=== PATIENT | female | born 1965 | race Caucasian/White ===

== ENCOUNTER 2016-07-24 18:13 | Emergency (ER) | payer SELFPAY ==
[~2016-07-24] VITALS: Wt 70.0 kg
[~2016-07-24 18:13] MED LIST: MECL12.5 PO; SERT25TA83 PO; ZOC10 PO
[2016-07-24] MEDS ORDERED: IBUP-1542 PO (18:41)
--- NOTE | 2016-07-24 18:51 | ERD ---
ER Documentation Chief Complaint Date/Time DATE: 07/24/16 TIME: 18:44 Chief Complaint SORE THROAT RIGHT SIDE EAR PAIN AND HEADACHE FOR 3 DAYS. HPI Patient is a 50-year-old female who presents to the emergency department with sore throat, right ear pain and headache 3 days. Patient states that her throat pain is worse when swallowing. Patient denies any drooling or trismus. Patient denies any fever, chills, nausea, vomiting, cough. Patient reports occasional clear rhinorrhea. Patient reports a normal appetite. Patient states that her right ear pain has been for the last 2 days. Patient denies any discharge or bleeding. Patient denies any hearing loss. Patient states that she has a headache for 2 days. Pain is primarily in the occipital region. Patient states that the pain has been gradual in onset. She denies sudden onset. She states her current pain level is 3 out of 10. Patient describes the pain to be throbbing. She denies any difficulty moving her neck. Patient has not taken any pain medication. Patient denies receiving her flu vaccine this year. Patient denies recent travel. Patient denies sick contacts. ROS All systems reviewed and are negative except as per history of present illness. Medications Home Meds Active Scripts Ibuprofen* (Motrin*) 600 Mg Tab, 600 MG PO Q6, #30 TAB Prov:ASAEL SCOTT PA-C 07/24/16 Reported Medications Simvastatin (Simvastatin) 10 Mg Tablet, 10 MG PO HS, TAB 03/29/14 Meclizine Hcl* (Meclizine Hcl*) 12.5 Mg Tablet, 12.5 MG PO DAILY, TAB 03/29/14 Sertraline Hcl* (Sertraline Hcl*) 25 Mg Tablet, 25 MG PO QAM, TAB 03/29/14 Allergies Allergies: Coded Allergies: No Known Allergy (Unverified , 03/29/14) PMhx/Soc History of Surgery: No Anesthesia Reaction: No Hx Neurological Disorder: No Hx Respiratory Disorders: No Hx Cardiac Disorders: No Hx Psychiatric Problems: No Hx Miscellaneous Medical Probl: No Hx Alcohol Use: No Hx Substance Use: No Hx Tobacco Use: No FmHx Family History: No diabetes Physical Exam Vitals Vital Signs Date Time Temp Pulse Resp B/P Pulse Ox O2 Delivery O2 Flow Rate FiO2 07/24/16 18:28 98.8 61 20 119/60 99 Physical Exam GENERAL: Well-developed, well-nourished female. Appears in no acute distress. Speaking in full sentences. HEAD: Normocephalic, atraumatic. No deformities or ecchymosis. EYE: Pupils equal, round, and reactive to light. EOMs intact. No conjunctival erythema. No scleral icterus. No eye discharge. ENT: External ear without any masses or tenderness. Auditory canals clear bilaterally. TM visualized bilaterally, non-erythematous, non-bulging. Nasal mucosa pink with no discharge. Oropharynx is pink without any tonsillar erythema or exudates. No uvula deviation. No kissing tonsils. Bilateral mastoid processes nontender to palpation. No drooling. No trismus. NECK: Supple. No lymphadenopathy or thyromegaly. No meningismus. Normal range of motion of the neck. LUNG: Clear to auscultation bilaterally. No rhonchi, wheezing, rales or coarse breath sounds. HEART: Regular rate and rhythm. No murmurs, rubs or gallops. BACK: No midline tenderness. Tender to palpation of right sided trapezius muscles EXTREMITES: Equal pulses bilaterally. No peripheral clubbing, cyanosis or edema. No unilateral leg swelling. NEUROLOGIC: Alert and oriented x3, cooperative. Mood and affect appropriate to situation. Cranial nerves II through XII are grossly intact. Normal speech. Motor exam: 5/5 strength in upper and lower extremities. Sensory exam: Sensation intact to light touch on all four extremities. Cerebellar function exam: Rapid alternating movements intact. No dysmetria on [id number] test. Steady gait. Negative Brudzinski sign. Negative Kernig sign. SKIN: Normal color. Warm and dry. No rashes or lesions. Procedures/MDM MEDICAL DECISION MAKING: This is a 50-year-old female who presents with throat pain, right-sided ear pain , and headache 3 days. Vital signs were reviewed. Patient was afebrile. Patient was not hypoxic. The patient does not have trismus, muffled voice, uvula deviation, unilateral tonsillar swelling, or drooling. No signs of neck swelling or hyperextension of the neck noted. ENT exam was normal. Lung exam was normal. Full neurological exam was negative. Given these findings, the patients presentation is most consistent with viral pharyngitis versus viral URI. I have a much lower clinical suspicion for epiglottitis, peritonsillar abscess, retropharyngeal abscess, Ludwigs angina, strep pharyngitis, dental abscess, otitis externa, acute otitis media, meningitis, subarachnoid hemorrhage , CVA, migraine headache. PRESCRIPTIONS: Ibuprofen DISCHARGE: At this time, patient is stable for discharge and outpatient management. Supportive therapies such as OTC throat lozenges and warm salt water gurgles were discussed. I have instructed the patient to follow-up with his/her primary care physician in 1-2 days. I have discussed with the patient the possibility of needing to see a specialist for further workup and imaging studies if symptoms persist. I have instructed the patient to promptly return to the ER for any new or worsening symptoms including increased pain, fever, nausea, vomiting, weakness or LOC. The patient and/or family expressed understanding of and agreement with this plan. All questions were answered. Home care instructions were provided. Departure Diagnosis: Primary Impression: Viral pharyngitis Condition: Stable Patient Instructions: Pharyngitis, Viral Additional Instructions: Llame al doctor KRYSTLE y ruel key MADHAVI PARA DENTRO DE 1-2 OZUNA.Dgale a la secretaria que nosotros le instruimos hacer esta madhavi.Avise o llame si steele condicin se empeora antes de la madhavi. Regresa aqui si peor o no mejor. ASAEL SCOTT PA-C Jul 24, 2016 18:51
== END 2016-07-24 18:51 | disposition home or self-care (01) ==
LOC: E/R 18:13
DX: J02.8 Acute pharyngitis due to other specified organisms (principal); B97.89 Other viral agents as the cause of diseases classified elsewhere
CPT/HCPCS: 99283

== ENCOUNTER 2018-08-22 06:56 | Emergency (ER) | payer OTHER ==
[~2018-08-22] VITALS: Ht 157.5 cm; Wt 63.7 kg
[~2018-08-22 06:56] MED LIST changes: +IBUP-1542 PO
[2018-08-22 07:00] VITALS: BP 130/64; PULSE 89; RESP 18; Ht 157.5 cm; Wt 63.7 kg
[2018-08-22] MEDS ORDERED: IPRATROPIUM (NEB) 0.5 MG/2.5 ML AMP NEB STA (07:12)
[2018-08-22] MEDS ORDERED: ACETAMINOPHEN 500 MG TAB PO STA (07:12)
[2018-08-22] MEDS ORDERED: ALBUTEROL 0.083% (NEB) 2.5 MG/3 ML AMP NEB STA (07:12)
[2018-08-22] MEDS ORDERED: DEXAMETHASONE 10 MG/ML 1 ML INJ IM STA (07:12)
--- NOTE | 2018-08-22 07:28 | ERD ---
ER Documentation Chief Complaint Chief Complaint cough, congestion & fever x3 days HPI 53-year-old female with a history of asthma presents complaining of waking up with shortness of breath and wheezing. She does not have an inhaler at home. Also states she has had a fever. Symptoms have been going on for about 3 days. No chest pain palpitations or diaphoresis. Did not take any antipyretics. Mild dry cough. ROS All systems reviewed and are negative except as per history of present illness. Medications Home Meds Active Scripts Albuterol Sulfate* (Proair HFA*) 8.5 Gm Hfa.aer.ad, 2 PUFF INH Q4, #1 INHALER Prov:MANOJ MARCOS PA-C 08/22/18 Azithromycin* (Zithromax*) 250 Mg Tablet, 250 MG PO .ZPACK DIRECTED, #6 TAB TAKE 500 MG (2 TABS) THE FIRST DAY THEN 250 MG (1 TAB) DAYS 2-5 Prov:MANOJ MARCOS PA-C 08/22/18 Ibuprofen* (Motrin*) 600 Mg Tab, 600 MG PO Q6, #30 TAB Prov:ASAEL SCOTT PA-C 07/24/16 Reported Medications Simvastatin (Simvastatin) 10 Mg Tablet, 10 MG PO HS, TAB 03/29/14 Meclizine Hcl* (Meclizine Hcl*) 12.5 Mg Tablet, 12.5 MG PO DAILY, TAB 03/29/14 Sertraline Hcl* (Sertraline Hcl*) 25 Mg Tablet, 25 MG PO QAM, TAB 03/29/14 Allergies Allergies: Coded Allergies: No Known Allergy (Unverified , 08/22/18) PMhx/Soc Medical and Surgical Hx: pt denies Medical Hx, pt denies Surgical Hx History of Surgery: No Anesthesia Reaction: No Hx Neurological Disorder: No Hx Respiratory Disorders: No Hx Cardiac Disorders: No Hx Psychiatric Problems: No Hx Miscellaneous Medical Probl: No Hx Alcohol Use: No Hx Substance Use: No Hx Tobacco Use: No Smoking Status: Never smoker FmHx Family History: No diabetes Physical Exam Vitals Vital Signs Date Temp Pulse Resp B/P (MAP) Pulse Ox O2 O2 Flow FiO2 Time Delivery Rate 08/22/18 77 19 96 21 07:35 08/22/18 101.4 89 18 130/64 96 07:00 (86) Physical Exam INITIAL VITAL SIGNS: Reviewed by me GENERAL: Awake, alert and oriented x 4, well appearing, nontoxic, speaking in full sentences. No acute distress HEAD: Atraumatic NECK: Supple. No masses. Full range of motion. No meningismus. No midline tenderness. EYES: EOMI. PERRL. RESPIRATORY: Clear to auscultation bilaterally. Symmetric chest wall rise. No wheezing or rales. No accessory muscle use. CV: Regular rate and rhythm. No murmurs, rubs, or gallops. ABDOMEN: Soft, non-distended. Nontender. Negative [place]. Negative McBurneys point tenderness. No CVA tenderness bilaterally. No guarding. No rebound. Results 24 hrs Current Medications Medications Dose Sig/Ana Start Time Status Last (Trade) Ordered Route PRN Stop Time Admin Dose Reason Admin 1,000 mg ONCE STAT 08/22/18 DC 08/22/18 Acetaminophen PO 07:12 08/22/18 07:18 (Tylenol 07:13 Tab) Albuterol 5 mg ONCE STAT 08/22/18 DC 08/22/18 (Proventil NEB 07:12 08/22/18 07:35 0.083% (Neb)) 07:13 Ipratropium 0.5 mg ONCE STAT 08/22/18 DC 08/22/18 [place]ington NEB 07:12 08/22/18 07:35 (Atrovent 07:13 0.02% (Neb)) 10 mg ONCE STAT 08/22/18 DC 08/22/18 Dexamethasone IM 07:12 08/22/18 07:18 (Decadron) 07:13 Procedures/MDM This is a 53-year-old female who is here with asthma exacerbation and fever. She is well-appearing and her lungs only show mild wheezing. I doubt she has pneumonia, sepsis or any other bacterial etiology for her symptoms. She was given Decadron and a breathing treatment with improvement as well as Tylenol for her fever. Chest x-ray shows possible pneumonia so she will be treated with azithromycin and also given albuterol inhaler. Patient counseled regarding my diagnostic impression and care plan. Prior to discharge all questions answered. Pt agrees with treatment plan and understands strict return precautions. Pt is instructed to follow up with primary care provider within 24-48 hours. Precautionary instructions provided including instructions to return to the ER if not improving or for any worsening or changing symptoms or concerns. Departure Diagnosis: Primary Impression: Pneumonia Condition: Stable MANOJ MARCOS PA-C Aug 22, 2018 07:28
[2018-08-22] MEDS ORDERED: AZIT250T PO (08:27)
[2018-08-22] MEDS ORDERED: ALBU8.5H8 INH (08:27)
== END 2018-08-22 08:53 | disposition home or self-care (01) ==
LOC: FTE 06:56
DX: J18.9 Pneumonia, unspecified organism (principal); J45.909 Unspecified asthma, uncomplicated
CPT/HCPCS: 71045; 94664; 96372; 99284; J1100

== ENCOUNTER 2018-08-27 10:08 | Emergency (ER) | payer OTHER ==
[~2018-08-27] VITALS: Wt 63.2 kg
[~2018-08-27 10:08] MED LIST changes: +ALBU8.5H8 INH; +AZIT250T PO
--- NOTE | 2018-08-27 11:35 | ERD ---
ER Documentation Chief Complaint Chief Complaint ANXIETY AND COUGH X 1 WEEK HPI 53-year-old female, presents to the emergency department, requesting chest x- rays, the patient states that she was seen here 3 days ago and started on antibiotics and albuterol inhaled without improvement of the symptoms, her son was hospitalized with diagnosis of pneumonia and she was told to have x-rays done. She denies fevers, no chills, no shortness of breath. ROS All systems reviewed and are negative except as per history of present illness. Medications Home Meds Active Scripts Albuterol Sulfate* (Proair HFA*) 8.5 Gm Hfa.aer.ad, 2 PUFF INH Q4, #1 INHALER Prov:MANOJ MARCOS PA-C 08/22/18 Azithromycin* (Zithromax*) 250 Mg Tablet, 250 MG PO .ZPACK DIRECTED, #6 TAB TAKE 500 MG (2 TABS) THE FIRST DAY THEN 250 MG (1 TAB) DAYS 2-5 Prov:MANOJ MARCOS PA-C 08/22/18 Ibuprofen* (Motrin*) 600 Mg Tab, 600 MG PO Q6, #30 TAB Prov:ASAEL SCOTT PA-C 07/24/16 Reported Medications Simvastatin (Simvastatin) 10 Mg Tablet, 10 MG PO HS, TAB 03/29/14 Meclizine Hcl* (Meclizine Hcl*) 12.5 Mg Tablet, 12.5 MG PO DAILY, TAB 03/29/14 Sertraline Hcl* (Sertraline Hcl*) 25 Mg Tablet, 25 MG PO QAM, TAB 03/29/14 Allergies Allergies: Coded Allergies: No Known Allergy (Unverified , 08/22/18) PMhx/Soc Medical and Surgical Hx: pt denies Surgical Hx History of Surgery: No Anesthesia Reaction: No Hx Neurological Disorder: No Hx Respiratory Disorders: No Hx Cardiac Disorders: No Hx Psychiatric Problems: No Hx Miscellaneous Medical Probl: Yes (high cholesterol) Hx Alcohol Use: Yes (social) Hx Substance Use: No Hx Tobacco Use: No Smoking Status: Never smoker FmHx Family History: No diabetes, No coronary disease Physical Exam Vitals Vital Signs Date Temp Pulse Resp B/P (MAP) Pulse Ox O2 O2 Flow FiO2 Time Delivery Rate 08/27/18 98.1 79 18 145/65 99 10:12 (91) Physical Exam Const: No acute distress Head: Atraumatic Eyes: Normal Conjunctiva ENT: Normal External Ears, Nose and Mouth. Neck: Full range of motion. No meningismus. Resp: Clear to auscultation bilaterally Cardio: Regular rate and rhythm, no murmurs Abd: Soft, non tender, non distended. Normal bowel sounds Skin: No petechiae or rashes Back: No midline or flank tenderness Ext: No cyanosis, or edema Neur: Awake and alert Psych: Normal Mood and Affect Procedures/MDM At the time of discharge, patient with nontoxic appearance, vital signs stable, no respiratory distress. Differential diagnosis include but not limited to: Respiratory infection bacterial/viral/fungal. Influenza, croup, bronchiolitis, pneumonitis, allergies, GERD. Less likely foreign body aspiration, cardiac related. Physical examination and clinical presentation consistent most likely with viral infection with early superimposed bacterial infection. During the ED course the patient remained stable, no new complaints. Treatment options and clinical impression discussed with patient who agrees with management. The patient is stable to be treated outpatient and will be discharged home. Some side effects of prescribed medications (headache, rash, nausea, vomiting, diarrhea, interactions with other medications) were reviewed. The patient needs to follow up with the primary care provider in the next 48h. If symptoms persist, worsen or new symptoms develop, then patient should return to the ED immediately. Disclaimer: Inadvertent spelling and grammatical errors are likely due to EHR/di ctation software use and do not reflect on the overall quality of patient care. Also, please note that the electronic time recorded on this note does not necessarily reflect the actual time of the patient encounter. Departure Diagnosis: Primary Impression: Cough Condition: Stable Additional Instructions: Muchas mercy por [facility] para steele servicio. Esperamos que en steele visita a la joe de emergencia steele problema medico haya sido solucionado y que se sienta mucho mejor. Para estar seguros que steele mejoria sigue en proceso, le pedimos el favor de hacer key nga de seguimiento medico con steele doctor primario en los proximos 2-4 luque. Lleve con usted estos documentos y las medicinas recetadas. Si mercedes sintomas empeoran, NO SE ESPERE, por favor regrese a joe de emergencia INMEDIATAMENTE. En magdalena que usted no tenga un mdico de atencin primaria: Llame al mdico o clnica comunitaria de referencia que aparece abajo des las horas de consultorio para hacer key nga para que le vean. CLINICAS: [facility] [phone] [facility] [phone] [address] [facility] [phone] [facility] [phone] [facility] [phone] [address] [facility]. [phone] WALT WELLS MD Aug 27, 2018 11:35
[2018-08-27] MEDS ORDERED: AMOX500C2 PO (12:16)
[2018-08-27] MEDS ORDERED: BENZ-6 PO (12:16)
[2018-08-27 12:31] VITALS: BP 142/62; PULSE 77; RESP 18
== END 2018-08-27 12:32 | disposition home or self-care (01) ==
LOC: FTE 10:08
DX: R05 Cough (principal)
CPT/HCPCS: 71046

== ENCOUNTER 2018-11-18 18:25 | Emergency (ER) | payer OTHER ==
[~2018-11-18] VITALS: Ht 157.5 cm; Wt 65.0 kg
[~2018-11-18 18:25] MED LIST changes: +AMOX500C2 PO; +BENZ-6 PO
[2018-11-18 18:48] VITALS: Ht 157.5 cm; Wt 65.0 kg
[2018-11-18] MEDS ORDERED: METHYLPREDNISOLONE 125 MG INJ IM STA (19:49)
--- NOTE | 2018-11-18 19:55 | ERD ---
ER Documentation Chief Complaint Chief Complaint DIZZINESS X4DAYS, INSOMNIA X4DAYS FEELS GAIT IS UNSTEADY NO NEURODEFICITS HPI Patient is a 53 years old post-menopausal female with past medical history of hyperlipidemia presenting to the clinic for dizziness and headache X 4 days. She reports the headache and dizziness was constant and has tried [id number]-[id number] medication without resolution. She reports having history of dizziness in the past that was treated with medication from PCP (patient cannot recall name). Patient denies urinary symptoms, shortness of breath, difficulty breathing, cough, runny nose, sinus pressure, ear pain. Patient admits to eating at regular intervals. ROS All systems reviewed and are negative except as per history of present illness. Medications Home Meds Active Scripts Sulfamethoxazole/Trimethoprim* (Bactrim Ds* Tablet) 1 Each Tablet, 1 TAB PO BID for 7 Days, #14 TAB Prov:CLAUDINE MORAN PA-C 11/18/18 Methylprednisolone* (Medrol* DOSE PACK) 4 Mg/Dose-Pack Tab.ds.pk, 4 MG PO . DIRECTED for 5 Days, PACKET Prov:CLAUDINE MORAN PA-C 11/18/18 Benzonatate* (Tessalon Perle*) 100 Mg Capsule, 100 MG PO Q8H PRN for COUGH, #20 CAP Prov:WALT MIMS MD 08/27/18 Amoxicillin* (Amoxicillin*) 500 Mg Cap, 500 MG PO TID for 7 Days, CAP Prov:WALT MIMS MD 08/27/18 Albuterol Sulfate* (Proair HFA*) 8.5 Gm Hfa.aer.ad, 2 PUFF INH Q4, #1 INHALER Prov:MANOJ MARCOS PA-C 08/22/18 Azithromycin* (Zithromax*) 250 Mg Tablet, 250 MG PO .ZPACK DIRECTED, #6 TAB TAKE 500 MG (2 TABS) THE FIRST DAY THEN 250 MG (1 TAB) DAYS 2-5 Prov:MANOJ MARCOS PA-C 08/22/18 Ibuprofen* (Motrin*) 600 Mg Tab, 600 MG PO Q6, #30 TAB Prov:ASAEL SCOTT PA-C 07/24/16 Reported Medications Simvastatin (Simvastatin) 10 Mg Tablet, 10 MG PO HS, TAB 03/29/14 Meclizine Hcl* (Meclizine Hcl*) 12.5 Mg Tablet, 12.5 MG PO DAILY, TAB 03/29/14 Sertraline Hcl* (Sertraline Hcl*) 25 Mg Tablet, 25 MG PO QAM, TAB 03/29/14 Allergies Allergies: Coded Allergies: No Known Allergy (Unverified , 08/22/18) PMhx/Soc History of Surgery: No Anesthesia Reaction: No Hx Neurological Disorder: No Hx Respiratory Disorders: No Hx Cardiac Disorders: No Hx Psychiatric Problems: No Hx Miscellaneous Medical Probl: Yes (high cholesterol) Hx Alcohol Use: Yes (social) Hx Substance Use: No Hx Tobacco Use: No Smoking Status: Never smoker FmHx Family History: No diabetes, No coronary disease, No other Physical Exam Vitals Vital Signs Date Temp Pulse Resp B/P (MAP) Pulse Ox O2 O2 Flow FiO2 Time Delivery Rate 11/18/18 97.1 70 20 158/75 97 18:48 (102) Physical Exam Const: No acute distress Head: Atraumatic. Maxillary tenderness. Eyes: Normal Conjunctiva. No Nystagmus. ENT: Normal External Ears, Nose and Mouth. Neck: Full range of motion. No meningismus. Resp: Clear to auscultation bilaterally Cardio: Regular rate and rhythm, no murmurs Ext: No cyanosis, or edema Neur: Awake and alert. CN II-XII intact. 5/5 upper an lower extremity strength. Psych: Normal Mood and Affect Results 24 hrs Laboratory Tests Test 11/18/18 20:00 Urine Color YELLOW Urine Clarity SLIGHTLY CLOUDY Urine pH 6.0 Urine Specific [place] 1.010 Urine Ketones NEGATIVE mg/dL Urine Nitrite NEGATIVE mg/dL Urine Bilirubin NEGATIVE mg/dL Urine Urobilinogen NEGATIVE mg/dL Urine Leukocyte Esterase 3+ Beckie/ul Urine Microscopic RBC 3 /HPF Urine Microscopic WBC 16 /HPF Urine Squamous Epithelial Cells FEW /HPF Urine Bacteria FEW /HPF Urine Hemoglobin 1+ mg/dL Urine Glucose NEGATIVE mg/dL Urine Total Protein NEGATIVE mg/dl Current Medications Medications Dose Sig/Ana Start Time Status Last (Trade) Ordered Route PRN Stop Time Admin Dose Reason Admin 125 mg ONCE STAT 11/18/18 DC 11/18/18 Methylprednis IM 19:49 20:03 olone Sodium 11/18/18 19:53 Succinate (Solu-Medrol) Procedures/MDM Patient was seen and evaluated for dizziness. Dizziness least likely cause of hypolgycemia (patient is eating at regular intervals), brain mass, Cardiac/pulmonary origins. Dizziness most likely a cause of sinus pressure from possible sinusitis. Urinalysis shows leukocyte Estrace which is indicative of UTI. Patient reports dizziness went away with administration of Solu-Medrol IM. Patient is stable and ready for discharge. Patient will be giving Bactrim and Medrol Dosepak. Ciprofloxacin not prescribed as it is contraindicated with Medrol Dosepak. Departure Diagnosis: Primary Impression: Dizziness Additional Impressions: Sinus pressure Sinusitis Sinusitis location: maxillary Chronicity: acute Recurrence: non- recurrent Qualified Codes: J01.00 - Acute maxillary sinusitis, unspecified Condition: Stable Patient Instructions: Dizziness (Vertigo) and Balance Problems: Ensuring Your Safety, Dizziness, Unk Cause, Understanding Urinary Tract Infections (UTIs) Referrals: [facility] Additional Instructions: Paciente aconseja volver a Departamento de urgencias inmediatamente para sntomas nuevos o que empeoran . Paciente aconseja posteriores con el PCP en 2-3 raymond . Paciente verbaliza la comprehensin y est de acuerdo con el tratamiento y el curso de accin. Si el paciente no tiene ninguna de atencin primaria pueden seguir con [facility] [address] [place] [address] o [facility] + [address] [phone] CLAUDINE MORAN PA-C November 18, 2018 19:55
[2018-11-18] MEDS ORDERED: SULF1TAB31 PO (20:46)
[2018-11-18] MEDS ORDERED: MED4DP PO (20:46)
[2018-11-18 21:14] VITALS: BP 128/73; PULSE 62; RESP 17
== END 2018-11-18 21:14 | disposition home or self-care (01) ==
LOC: FTE 18:25
DX: J01.00 Acute maxillary sinusitis, unspecified (principal)
CPT/HCPCS: 81001; 93005; J2930; 96372